=== PATIENT | female | born 1990 | race Caucasian/White ===

== ENCOUNTER 2018-01-25 07:49 | Emergency (ER) | payer OTHER ==
[2018-01-25 08:34] LABS: PLATELET COUNT 190 10^3/uL (150-400)
--- NOTE | 2018-01-25 08:45 | EDPHY ---
H & P Stated Complaint: pelvic pain Time Seen by Provider: 01/25/18 08:41 HPI/ROS: CHIEF COMPLAINT: Pelvic pain HISTORY OF PRESENT ILLNESS: The patient presents the ED with complaints of central pelvic pain that began last night after intercourse. She reports her symptoms have persisted this morning. She attributes them to an IUD which has been placed since 2011. She denies any vaginal bleeding or discharge. She denies any fever, cough or congestion. She denies any right or left-sided abdominal pain. The patient has no prior surgical history. She denies additional acute complaints. REVIEW OF SYSTEMS: A comprehensive 10 point review of systems is otherwise negative aside from elements mentioned in the history of present illness. Source: Patient - Personal History LMP (Females 10-55): IUD In Place Current Tetanus/Diphtheria Vaccine: Yes Current Tetanus Diphtheria and Acellular Pertussis (TDAP): Yes - Medical/Surgical History Hx Asthma: No Hx Chronic Respiratory Disease: No Hx Diabetes: No Hx Cardiac Disease: No Hx Renal Disease: No Hx Cirrhosis: No Hx Alcoholism: No Hx HIV/AIDS: No Hx Splenectomy or Spleen Trauma: No Other PMH: epilepsy, turrets - Social History Smoking Status: Never smoked - Physical Exam Exam: General Appearance: Alert, no distress Eyes: Pupils equal and round no pallor or injection ENT, Mouth: Mucous membranes moist Respiratory: There are no retractions, lungs are clear to auscultation Cardiovascular: Regular rate and rhythm Gastrointestinal: Minimal midline suprapubic tenderness, no right lower quadrant or left lower quadrant tenderness Neurological: 5/5 strength all 4 extremities Skin: Warm and dry, no rashes Musculoskeletal: Neck is supple nontender Extremities: symmetrical, full range of motion Constitutional: Initial Vital Signs Temperature (C) 36.6 C 01/25/18 07:57 Heart Rate 69 01/25/18 07:57 Respiratory Rate 16 01/25/18 07:57 Blood Pressure 105/63 01/25/18 07:57 O2 Sat (%) 92 01/25/18 07:57 O2 Delivery Mode Room Air Allergies/Adverse Reactions: No Known Allergies Allergy (Unverified 01/25/18 07:55) Home Medications: Medication Instructions Recorded LaMICtal 01/12/15 Zonegran 01/12/15 Medical Decision Making - Diagnostics Imaging Results: Imaging Impressions Pelvic/Renal Ultrasound 01/25/18 08:44 Impression: 1. Appropriate positioning of the intrauterine device. 2. Normal appearance of the ovaries, with no dominant adnexal mass, torsion, or free fluid. Findings were discussed with Beth Moore PA-C who will convey the information to Sang Albright MD at 10:25 AM, on 01/25/2018. If there is further clinical concern regarding the patient's ongoing pelvic pain , contrast-enhanced CT imaging could be considered. . ED Course/Re-evaluation: The patient presents the emergency department for pelvic pain following intercourse last night. She is also requesting removal of an IUD. The patient was taken for a pelvic ultrasound which demonstrates no evidence of torsion. Her laboratory studies, urinalysis another testing are within normal limits. The patient did receive Toradol in the emergency department. The patient did undergo a pelvic exam at 10:00 a.m. and I removed her IUD without complication. Differential Diagnosis: Differential diagnosis considered includes ectopic , urinary tract infection, IUD migration, peritonitis, appendicitis, ovarian torsion, ovarian cyst - Data Points Laboratory Results: Laboratory Results 01/25/18 08:25 01/25/18 08:25 01/25/18 01/25/18 01/25/18 08:25 08:25 08:25 WBC RBC Hgb Hct MCV MCH MCHC RDW Plt Count MPV Neut % (Auto) Lymph % (Auto) [place] % (Auto) Eos % (Auto) Baso % (Auto) Nucleat RBC Rel Count Absolute Neuts (auto) Absolute Lymphs (auto) Absolute Monos (auto) Absolute Eos (auto) Absolute Basos (auto) Absolute Nucleated RBC Immature Gran % Immature Gran # Sodium 144 mEq/L mEq/L (135-145) Potassium 3.8 mEq/L mEq/L (3.5-5.2) Chloride 105 mEq/L mEq/L (97-110) Carbon Dioxide 23 mEq/l mEq/l (22-31) Anion Gap 16 mEq/L mEq/L (8-16) BUN 13 mg/dL mg/dL (7-23) Creatinine 0.9 mg/dL mg/dL (0.6-1.0) Estimated GFR > 60 Glucose 86 mg/dL mg/dL (70-100) Calcium 9.3 mg/dL mg/dL (8.5-10.4) Beta HCG, Qual NEGATIVE Urine Color YELLOW Urine Appearance MODERATELY TURBID Urine pH 6.0 (5.0-7.5) Ur Specific [place] 1.021 (1.002-1.030) Urine Protein NEGATIVE (NEGATIVE) Urine Ketones NEGATIVE (NEGATIVE) Urine Blood 1+ H (NEGATIVE) Urine Nitrate NEGATIVE (NEGATIVE) Urine Bilirubin NEGATIVE (NEGATIVE) Urine Urobilinogen NEGATIVE EU EU (0.2-1.0) Ur Leukocyte Esterase NEGATIVE (NEGATIVE) Urine RBC NONE SEEN /hpf /hpf (0-3) Urine WBC NONE SEEN /hpf /hpf (0-3) Ur Epithelial Cells TRACE /lpf /lpf (NONE-1+) Amorphous Sediment PRESENT /hpf /hpf (NONE-1+) Urine Mucus TRACE /lpf /lpf (NONE-1+) Urine Glucose NEGATIVE (NEGATIVE) 01/25/18 08:25 WBC 5.96 10^3/uL 10^3/uL (3.80-9.50) RBC 4.66 10^6/uL 10^6/uL (4.18-5.33) Hgb 14.2 g/dL g/dL (12.6-16.3) Hct 43.0 % % (38.0-47.0) MCV 92.3 fL fL (81.5-99.8) MCH 30.5 pg pg (27.9-34.1) MCHC 33.0 g/dL g/dL (32.4-36.7) RDW 12.7 % % (11.5-15.2) Plt Count 190 10^3/uL 10^3/uL (150-400) MPV 9.8 fL fL (8.7-11.7) Neut % (Auto) 54.8 % % (39.3-74.2) Lymph % (Auto) 34.6 % % (15.0-45.0) [place] % (Auto) 7.4 % % (4.5-13.0) Eos % (Auto) 3.0 % % (0.6-7.6) Baso % (Auto) 0.0 % L % (0.3-1.7) Nucleat RBC Rel Count 0.0 % % (0.0-0.2) Absolute Neuts (auto) 3.27 10^3/uL 10^3/uL (1.70-6.50) Absolute Lymphs (auto) 2.06 10^3/uL 10^3/uL (1.00-3.00) Absolute Monos (auto) 0.44 10^3/uL 10^3/uL (0.30-0.80) Absolute Eos (auto) 0.18 10^3/uL 10^3/uL (0.03-0.40) Absolute Basos (auto) 0.00 10^3/uL L 10^3/uL (0.02-0.10) Absolute Nucleated RBC 0.00 10^3/uL 10^3/uL (0-0.01) Immature Gran % 0.2 % % (0.0-1.1) Immature Gran # 0.01 10^3/uL 10^3/uL (0.00-0.10) Sodium Potassium Chloride Carbon Dioxide Anion Gap BUN Creatinine Estimated GFR Glucose Calcium Beta HCG, Qual Urine Color Urine Appearance Urine pH Ur Specific [place] Urine Protein Urine Ketones Urine Blood Urine Nitrate Urine Bilirubin Urine Urobilinogen Ur Leukocyte Esterase Urine RBC Urine WBC Ur Epithelial Cells Amorphous Sediment Urine Mucus Urine Glucose Medications Given: Discontinued Medications Ketorolac Tromethamine (Toradol) 15 mg IVP EDNOW ONE Stop: 01/25/18 09:14 Last Admin: 01/25/18 09:19 Dose: 15 mg Departure - Departure Disposition: Home, Routine, Self-Care Clinical Impression: Uterine pain Condition: Good Instructions: Pelvic Pain in Women (ED) Additional Instructions: 1. Per your request you are IUD has been removed. 2. Take Ibuprofen or Motrin 600 mg by mouth three times a day. 3. Please discuss new control methods with your primary care provider. Referrals: BARBIE SANCHEZ [Primary Care Provider] - As per Instructions
[2018-01-25] MEDS ORDERED: KETOROLAC 30 MG/1 ML SDV IVP ONE (09:13)
[2018-01-25 10:54] VITALS: BP 106/74
== END 2018-01-25 10:41 | disposition home or self-care (01) ==
DX: N94.89 Other specified conditions associated with female genital organs and menstrual cycle (principal)
CPT/HCPCS: 96374; J1885